=== PATIENT | female | born 1990 | race Caucasian/White ===

== ENCOUNTER 2021-10-06 09:53 | Emergency (ER) | payer OTHER, SELFPAY ==
[2021-10-06 09:58] VITALS: BP 135/72; PULSE 66; RESP 20; TEMP 36.7; O2SAT 99
--- NOTE | 2021-10-06 09:59 | ED.URI ---
HPI - URI/Sore Throat General Chief Complaint: Upper Respiratory Infection Stated Complaint: cough Time Seen by Provider: 10/06/21 09:59 Source: patient and RN notes reviewed History of Present Illness HPI Narrative: Patient is a 31-year-old female who presents the urgent care with complaints of increased allergies and cough for the last week and a half. Patient states that she has had thick mucus and been unable to cough it up. Patient also reports of some wheezing at night. Patient does have a history of asthma and has been out of her inhaler. Currently denies of any shortness of breath. Denies of any ill exposures. No other complaints. No acute distress noted. Patient aware of the plan of care. Some parts of this dictation were generated by voice recognition software and may contain typographical and/or grammatical inaccuracies. Related Data Allergies Allergy/AdvReac Type Severity Reaction Status Date / Time codeine Allergy Intermediate Hives / Verified 10/06/21 09:56 Red Face Penicillins Allergy Unknown Rash Verified 10/06/21 09:56 iodine AdvReac Unknown Nausea and Verified 10/06/21 09:56 Vomiting Review of Systems Review of Systems: CONSTITUTIONAL: Denies fever, chills, or sweats. EYES: Denies visual changes, redness, or discharge. ENT: Reports of rhinorrhea, mild sore throat, postnasal drainage and congestion CARDIOVASCULAR: Denies chest pain, palpitations, or edema. RESPIRATORY: Reports of intermittent cough with wheezing at night GASTROINTESTINAL: Denies abdominal pain, nausea, vomiting, or diarrhea. GENITOURINARY: Denies dysuria or hematuria. SKIN: Denies rash or itching. MUSCULOSKELETAL: Denies back pain, joint pain, or myalgia. NEUROLOGIC: Denies headache, numbness, or weakness. All other systems reviewed are negative, except as documented in HPI. PMFSH Social History Social History Gender identity (if verbalized by the patient): Female Comments At the time of my signature, I reviewed and agree with the nursing past medical, surgical, social, and family history. There is no relevant family history pertinent to the patient complaint. Exam Narrative: GENERAL: This is a well-nourished, well-developed patient, in no apparent distress. HEAD: normocephalic, atraumatic. EYES: PERRL. Sclera clear/white. Vision is grossly intact. EARS: External ears normal, auditory canals clear and without drainage, TMs normal without perforation. Hearing grossly intact. NOSE: External nose normal with no obvious nasal discharge. Bilateral erythemic nares with clear rhinorrhea THROAT: Mucous membranes moist, posterior pharynx clear. Moderate postnasal drainage NECK: Neck supple CARDIOVASCULAR: Regular rate and rhythm without murmurs, gallops, or rubs. RESPIRATORY: Clear to auscultation. Breath sounds equal bilaterally. No wheezes, rales, or rhonchi. SKIN: warm, intact with no suspicious lesions or rash, good texture and turgor. NEURO: awake, alert, and oriented to person, place and time. There were no obvious focal neurologic abnormalities. EXTREMITIES: No clubbing, cyanosis, or edema. Course Course Level of Care: Express Care Visit Vital Signs Vital signs: Vital Signs Temperature 98.1 F 10/06/21 09:58 Pulse Rate 66 10/06/21 09:58 Respiratory Rate 20 10/06/21 09:58 Blood Pressure 135/72 10/06/21 09:58 Pulse Oximetry 99 10/06/21 09:58 Temperature 98.1 F 10/06/21 09:58 Pulse Rate 66 10/06/21 09:58 Respiratory Rate 20 10/06/21 09:58 Blood Pressure 135/72 10/06/21 09:58 Pulse Oximetry 99 10/06/21 09:58 Reviewed MDM - URI/Sore Throat MDM Narrative Medical decision making narrative: Advised the patient to complete steroid regimen as prescribed. Be sure to eat and drink with the medication. Use your inhaler as needed for wheezing or shortness of breath. Continue your daily allergy medication and use Benadryl prior to bedti
== END 2021-10-06 10:19 | disposition home or self-care (01) ==
PROVIDERS: Emergency Provider Nurse Practitioner Family; PCP Internal Medicine
DX: T78.49XA Other allergy, initial encounter (principal); J45.909 Unspecified asthma, uncomplicated
CPT/HCPCS: 99213; G0463

== ENCOUNTER 2022-03-23 16:38 | Emergency (ER) | payer OTHER, SELFPAY ==
[2022-03-23 16:38] VITALS: BP 144/86; PULSE 76; RESP 20; TEMP 36.9; O2SAT 100
--- NOTE | 2022-03-23 16:46 | ED.FEMALEGU ---
HPI - Female Genitourinary General Chief complaint: Urogenital-Female Stated complaint: Urinary Problem Time Seen by Provider: 03/23/22 16:46 Source: patient and RN notes reviewed History of Present Illness HPI Narrative: Patient is a 31-year-old female presents the urgent care with complaints of a possible UTI due to low back pain and urinary frequency. Patient states she has had a history of them but has not had one for at least 1 year. Patient has not taken anything [id number] for her symptoms. States that they started 3 to 4 days ago. Denies of any fever, nausea, vomiting or abdominal pain. No other acute complaints. No acute distress noted. Patient aware of the plan of care. Some parts of this dictation were generated by voice recognition software and may contain typographical and/or grammatical inaccuracies. Related Data Home Medications Medication Instructions Recorded Confirmed carbamazepine 200 mg tablet mg 03/23/22 clonidine HCl 0.1 mg tablet mg 03/23/22 fluoxetine 20 mg capsule mg 03/23/22 gabapentin 300 mg capsule mg 03/23/22 valacyclovir 500 mg tablet mg 03/23/22 Allergies Allergy/AdvReac Type Severity Reaction Status Date / Time codeine Allergy Intermediate Hives / Verified 03/23/22 16:40 Red Face Penicillins Allergy Unknown Rash Verified 03/23/22 16:40 iodine AdvReac Unknown Nausea and Verified 03/23/22 16:40 Vomiting Review of Systems Review of Systems: CONSTITUTIONAL: Denies fever, chills, or sweats. EYES: Denies visual changes, redness, or discharge. ENT: Denies rhinorrhea, congestion, sore throat, or otalgia. CARDIOVASCULAR: Denies chest pain, palpitations, or edema. RESPIRATORY: Denies cough or dyspnea. GASTROINTESTINAL: Denies abdominal pain, nausea, vomiting, or diarrhea. GENITOURINARY: Reports of urinary frequency and low back pain SKIN: Denies rash or itching. MUSCULOSKELETAL: Denies back pain, joint pain, or myalgia. NEUROLOGIC: Denies headache, numbness, or weakness. All other systems reviewed are negative, except as documented in HPI. [facility] Social History Social History Gender identity (if verbalized by the patient): Female Comments At the time of my signature, I reviewed and agree with the nursing past medical, surgical, social, and family history. There is no relevant family history pertinent to the patient complaint. Exam Narrative: GENERAL: This is a well-nourished, well-developed patient, in no apparent distress. HEAD: normocephalic, atraumatic. EYES: PERRL. Sclera clear/white. Vision is grossly intact. EARS: External ears normal NOSE: External nose normal with no obvious nasal discharge, nares without redness, no rhinorrhea. THROAT: Mucous membranes moist NECK: Neck supple CARDIOVASCULAR: Regular rate and rhythm without murmurs, gallops, or rubs. RESPIRATORY: Clear to auscultation. Breath sounds equal bilaterally. No wheezes, rales, or rhonchi. GASTROINTESTINAL: Abdomen soft, non-tender, nondistended. Bowel sounds are active. SKIN: warm, intact with no suspicious lesions or rash, good texture and turgor. NEURO: awake, alert, and oriented to person, place and time. There were no obvious focal neurologic abnormalities. EXTREMITIES: No clubbing, cyanosis, or edema. BACK: Mild diffuse lumbar tenderness. No flank tenderness. Course Course Level of Care: Express Care Visit Vital Signs Vital signs: Vital Signs Temperature 98.5 F 03/23/22 16:38 Pulse Rate 76 03/23/22 16:38 Respiratory Rate 20 03/23/22 16:38 Blood Pressure 144/86 H 03/23/22 16:38 Pulse Oximetry 100 03/23/22 16:38 Oxygen Delivery Room Air 03/23/22 16:38 Temperature 98.5 F 03/23/22 16:54 Pulse Rate 76 03/23/22 16:54 Respiratory Rate 20 03/23/22 16:54 Blood Pressure 144/86 H 03/23/22 16:54 Pulse Oximetry 100 03/23/22 16:54 Oxygen Delivery Room Air 03/23/22 16:54 Reviewed-patient is inform
[2022-03-23 16:54] VITALS: BP 144/86; PULSE 76; RESP 20; TEMP 36.9; O2SAT 100
== END 2022-03-23 17:20 | disposition home or self-care (01) ==
PROVIDERS: Emergency Provider Nurse Practitioner Family; PCP Internal Medicine
DX: M54.50 Low back pain, unspecified (principal)
CPT/HCPCS: 81003; 99212; G0463

== ENCOUNTER 2022-04-03 15:58 | Emergency (ER) | payer OTHER, SELFPAY ==
[2022-04-03 16:04] VITALS: BP 144/87; PULSE 97; RESP 20; TEMP 36.7; O2SAT 100
--- NOTE | 2022-04-03 16:08 | ED.URI ---
HPI - URI/Sore Throat General Chief Complaint: Headache Stated Complaint: upper respiratory/ passed out at work Time Seen by Provider: 04/03/22 16:09 Source: patient and RN notes reviewed Mode of arrival: ambulatory Limitations: no limitations History of Present Illness HPI Narrative: 31-year-old female presents to the [facility] with complaints of passing out at work today about 8:00 a.m.. Reports that she had a loss of consciousness as well as hitting her head. Reports that she had an EMS ride to [facility] and states that was evaluated. patient reports that she had an EKG and blood work which she reports is negative. denies having any type of imaging. Patient comes to the [facility] and is complaining of 1 of the worst headaches she has ever had. Patient is also complaining of sinus congestion. Daughter tested positive for RSV last week. Denies fevers. MD elicited complaint: rhinorrhea and nasal congestion Consistency: constant Related Data Home Medications Medication Instructions Recorded Confirmed carbamazepine 200 mg tablet mg 03/23/22 clonidine HCl 0.1 mg tablet mg 03/23/22 fluoxetine 20 mg capsule mg 03/23/22 gabapentin 300 mg capsule mg 03/23/22 valacyclovir 500 mg tablet 500 mg PO BID 03/23/22 03/23/22 Allergies Allergy/AdvReac Type Severity Reaction Status Date / Time codeine Allergy Intermediate Hives / Verified 04/03/22 16:06 Red Face Penicillins Allergy Unknown Rash Verified 04/03/22 16:06 iodine AdvReac Unknown Nausea and Verified 04/03/22 16:06 Vomiting Review of Systems Review of Systems: All systems reviewed & are unremarkable except as noted in HPI and below Constitutional: Constitutional: Reports no additional constitutional complaints, Denies chills and Denies fever(s) Eyes: Eyes: Reports no additional eye complaints ENT: Reports system reviewed and no additional complaints, except as documented Cardiovascular: Cardiovascular: Reports no additional cardiovascular complaints Respiratory: Respiratory: Reports no additional respiratory complaints Gastrointestinal: Gastrointestinal: Reports no additional gastrointestinal complaints Musculoskeletal: Musculoskeletal: Reports no additional musculoskeletal complaints Integumentary/Breasts: Skin/Breast: Reports system reviewed and no additional complaints, except as docu Neurologic: Reports as per HPI, Reports syncope and Reports headache(s) Psychiatric: Psychiatric: Reports no additional psychiatric complaints Allergic/Immunologic: Allergic/Immunologic: Reports no additional allergic/immunologic complaints [facility] Past Medical History Medical History (Updated 04/03/22 @ 16:34 by Feli Parikh APRN) Anxiety and depression Social History Social History Gender identity (if verbalized by the patient): Female Comments At the time of my signature, I reviewed and agree with the nursing past medical, surgical, social, and family history. There is no relevant family history pertinent to the patient complaint. Exam Const: General: healthy appearing, no acute distress, alert and well nourished Nutritional Appearance: well nourished and obese Orientation/consciousness: patient oriented x3 Limitations: no limitations HENMT: Head: normal to inspection Ears: external ears normal, TM's normal bilaterally and EAC's normal Face/Nose/Sinus: Normal external nose present and Normal nares present Face and sinus: normal facial exam Throat: posterior oropharynx normal and uvula midline Eyes: General: appearance normal, both eyes and all related structures Conjunctivae: conjunctivae normal Pupils: Equal, round and reactive pupils present EOM: EOMs intact bilaterally Direct Ophthalmoscopy: no photophobia Neck: Neck: normal visual inspection, no lymphadenopathy and no meningeal signs Chest: Chest palpation & inspection: normal inspection of the chest Resp: Effort & In
[2022-04-03 16:13] VITALS: BP 144/87; PULSE 97; RESP 20; TEMP 36.7; O2SAT 100
== END 2022-04-03 16:15 | disposition short-term general hospital (02) ==
PROVIDERS: Emergency Provider Nurse Practitioner; PCP Internal Medicine
DX: R55 Syncope and collapse (principal); R51.9 Headache, unspecified; F41.9 Anxiety disorder, unspecified; F32.A Depression, unspecified
CPT/HCPCS: 99211; 99213; G0463

== ENCOUNTER 2022-05-18 11:23 | Emergency (ER) | payer OTHER, SELFPAY ==
[2022-05-18 11:28] VITALS: BP 125/91; PULSE 155; RESP 20; TEMP 37; O2SAT 100
--- NOTE | 2022-05-18 12:56 | ED.URI ---
HPI - URI/Sore Throat General Chief Complaint: Upper Respiratory Infection Stated Complaint: cold w/ear Time Seen by Provider: 05/18/22 12:56 Source: patient, RN notes reviewed and old records reviewed Mode of arrival: ambulatory Limitations: no limitations History of Present Illness HPI Narrative: 31 year female presents to [facility] with complaints of right ear pain, she has a continued cough and congestion for the past week. Patient was diagnosed with COVID 1 week ago has quarantined and has returned to work. Patient reports that cough has been bothersome with patient reporting using her inhaler prn. She states that she has also use OTC Tylenol, cough and cold medication without improvement in her symptoms. MD elicited complaint: cough (with congestion and right ear pain) Pertinent past history: other (recent COVID) Onset (ago): week(s) (1) Treatments prior to arrival: acetaminophen, cold medicine and other (inhaler) Related Data Home Medications Medication Instructions Recorded Confirmed carbamazepine 200 mg tablet 200 mg PO BID 03/23/22 04/03/22 clonidine HCl 0.1 mg tablet 0.1 mg PO BID 03/23/22 04/03/22 fluoxetine 20 mg capsule 20 mg PO BID 03/23/22 04/03/22 gabapentin 300 mg capsule 300 mg PO BID 03/23/22 04/03/22 valacyclovir 500 mg tablet See Rx Instructions .Route .COMPLEX 03/23/22 04/03/22 baclofen 20 mg tablet mg 05/18/22 desogestrel-e.estradiol 0.15 tablet 05/18/22 mg-0.02 mg(21)/e.estrad 0.01 mg(5) tablet ([place] (28)) Allergies Allergy/AdvReac Type Severity Reaction Status Date / Time codeine Allergy Intermediate Hives / Verified 04/03/22 16:06 Red Face Penicillins Allergy Unknown Rash Verified 04/03/22 16:06 iodine AdvReac Unknown Nausea and Verified 04/03/22 16:06 Vomiting Review of Systems Review of Systems: CONSTITUTIONAL: Denies malaise, chills, sweats, or fever. EYES: Denies visual changes, redness, or discharge. ENT: Reports rhinorrhea, congestion, sinus pain, otalgia and sore throat. CARDIOVASCULAR: Denies chest pain, palpitations, or edema. RESPIRATORY: Reports cough.? Denies dyspnea. GASTROINTESTINAL: Denies abdominal pain, nausea, vomiting, diarrhea SKIN: Denies rash or itching. MUSCULOSKELETAL: Denies myalgia. NEUROLOGIC: Denies headache. All systems reviewed & are unremarkable except as noted in HPI and below PMFSH Past Medical History Medical History (Updated 05/28/22 @ 11:08 by Darlin Pérez NP) Anxiety and depression Asthma Surgical History Surgical History (Updated 05/28/22 @ 11:07 by Darlin Pérez NP) H/O left knee surgery Hx of cholecystectomy Previous section total X2 Social History Social History Gender identity (if verbalized by the patient): Female Comments At time of signature, agree with nursing past medical, surgical, social and family history. There is no relevant family history pertinent to the presenting complaint Exam Narrative: GENERAL: Well-appearing, well-nourished, and in no acute distress. HEAD: Normocephalic EYES: PERRLA, conjunctivae clear ENT: Nares clear, turbinates edematous and erythematous, clear discharge. Mucous membranes moist. Right TM red and bulging, Left TM pearly donohue with dull light reflex; no tragal tenderness. Oropharynx erythematous without lesions. Tonsils not enlarged and without exudate, no drooling, no hoarseness, no trismus, uvula midline. NECK: Supple. No lymphadenopathy CHEST: Clear to auscultation, breath sounds equal. No wheezing, rhonchi, rales, or stridor. No respiratory distress, speaks in full sentences.frequent harsh cough SAO2 100% on room air HEART: Regular rate and rhythm. No murmur heard. SKIN: Warm, dry, no rash. NEURO: Alert and oriented x3. PSYCH: Normal mood and affect Course Course Emergency Course: Patient is aware of diagnosis, understands and agrees to treatment plan.? Ant
== END 2022-05-18 13:13 | disposition home or self-care (01) ==
PROVIDERS: Emergency Provider Registered Nurse; PCP Internal Medicine
DX: H66.91 Otitis media, unspecified, right ear (principal); R05.1 Acute cough; F41.9 Anxiety disorder, unspecified; F32.A Depression, unspecified
CPT/HCPCS: 99213; G0463

== ENCOUNTER 2023-02-19 10:50 | Emergency (ER) | payer OTHER, SELFPAY ==
[2023-02-19 10:55] VITALS: BP 111/86; PULSE 87; RESP 16; TEMP 36.4; O2SAT 100
--- NOTE | 2023-02-19 11:09 | ED.SKABFB ---
HPI - Skin/Abscess/Foreign Bdy General Chief complaint: Skin/Abscess/Foreign Body Stated complaint: Skin Sore on Back Time Seen by Provider: 02/19/23 11:09 Source: patient, RN notes reviewed and old records reviewed Mode of arrival: ambulatory Limitations: no limitations History of Present Illness HPI narrative: 32-year-old female presents to the [facility] with concerns of a cyst that has been on her back for 7 years. Patient reports, the care and more painful over the last several days. No erythema, no increased warmth, no fluctuance noted. No abscess area Related Data Home Medications Medication Instructions Recorded Confirmed carbamazepine 200 mg tablet 200 mg PO BID 03/23/22 02/19/23 clonidine HCl 0.1 mg tablet 0.1 mg PO BID 03/23/22 02/19/23 fluoxetine 20 mg capsule 20 mg PO BID 03/23/22 02/19/23 gabapentin 300 mg capsule 300 mg PO BID 03/23/22 02/19/23 baclofen 20 mg tablet 20 mg PO BID 05/18/22 02/19/23 Allergies Allergy/AdvReac Type Severity Reaction Status Date / Time codeine Allergy Intermediate Hives / Verified 02/19/23 11:06 Red Face Penicillins Allergy Unknown Rash Verified 02/19/23 11:06 iodine AdvReac Unknown Nausea and Verified 02/19/23 11:06 Vomiting Review of Systems Review of Systems: All systems reviewed & are unremarkable except as noted in HPI and below Constitutional: Constitutional: Reports no additional constitutional complaints Eyes: Eyes: Reports no additional eye complaints ENT: Reports system reviewed and no additional complaints, except as documented Cardiovascular: Cardiovascular: Reports no additional cardiovascular complaints, Denies chest pain and Denies dyspnea Respiratory: Respiratory: Reports no additional respiratory complaints, Denies chest congestion, Denies cough and Denies dyspnea Gastrointestinal: Gastrointestinal: Reports no additional gastrointestinal complaints, Denies abdominal pain, Denies nausea and Denies vomiting Musculoskeletal: Musculoskeletal: Reports no additional musculoskeletal complaints Integumentary/Breasts: Skin/Breast: Reports as per HPI Neurologic: Reports system reviewed and no additional complaints, except as documented Psychiatric: Psychiatric: Reports no additional psychiatric complaints Allergic/Immunologic: Allergic/Immunologic: Reports no additional allergic/immunologic complaints PMFSH Past Medical History Medical History Anxiety and depression Asthma Surgical History Surgical History H/O left knee surgery Hx of cholecystectomy Previous section total X2 Social History Social History Gender identity (if verbalized by the patient): Female Comments At the time of my signature, I reviewed and agree with the nursing past medical, surgical, social, and family history. There is no relevant family history pertinent to the patient complaint. Exam Const: General: cooperative, healthy appearing, comfortable, no acute distress, well developed, alert and well nourished Nutritional Appearance: well nourished and obese Orientation/consciousness: patient oriented x3 Limitations: no limitations HENMT: Head: normal to inspection Ears: hearing grossly normal bilaterally and external ears normal Face/Nose/Sinus: Normal external nose present, Normal nares present, Normal nasal mucous membranes and turbinates present, normal facial exam and face symmetric Face and sinus: normal facial exam and face symmetric Eyes: General: appearance normal, both eyes and all related structures Alignment and Position: alignment normal Periorbital: periorbital findings normal Pupils: Equal, round and reactive pupils present EOM: EOMs intact bilaterally Neck: Neck: normal visual inspection, full ROM, no lymphadenopathy and no meningeal signs Chest: Chest palpation & inspect
== END 2023-02-19 11:40 | disposition home or self-care (01) ==
PROVIDERS: Emergency Provider Nurse Practitioner; PCP Internal Medicine
DX: D23.5 Other benign neoplasm of skin of trunk (principal); F41.9 Anxiety disorder, unspecified; F32.A Depression, unspecified; J45.909 Unspecified asthma, uncomplicated
CPT/HCPCS: 99211; G0463

== ENCOUNTER 2023-12-01 11:49 | Emergency (ER) | payer OTHER, SELFPAY ==
--- NOTE | 2023-12-01 11:54 | ED.NAVMDI ---
HPI - Nausea/Vomiting/Diarrhea General Chief complaint: Nausea/Vomiting/Diarrhea Stated complaint: lightheaded/diarrhea/nausea Time Seen by Provider: 12/01/23 11:54 Source: patient and RN notes reviewed Mode of arrival: ambulatory Limitations: no limitations History of Present Illness HPI Narrative: 33-year-old female presented for complaint of nausea vomiting, diarrhea and occasional stomachache and headache for the last 3 days. Endorses the abdominal pain occurs before vomiting. Admits to noting some blood in stool. LBM today, no blood noted. Patient is able to tolerate fluids. She was able to eat did doughnut today without vomiting. Denies fever. Not taking anything otc for symptoms. Related Data Home Medications Medication Instructions Recorded Confirmed carbamazepine 200 mg tablet 200 mg PO BID 03/23/22 12/01/23 clonidine HCl 0.1 mg tablet 0.1 mg PO BID 03/23/22 12/01/23 fluoxetine 20 mg capsule 20 mg PO BID 03/23/22 12/01/23 gabapentin 300 mg capsule 300 mg PO BID 03/23/22 12/01/23 baclofen 20 mg tablet 20 mg PO BID 05/18/22 12/01/23 atomoxetine 40 mg capsule 40 mg PO DAILY 12/01/23 12/01/23 (Strattera) cholecalciferol (vitamin D3) 50 50 mcg PO DAILY 12/01/23 12/01/23 mcg (2,000 unit) capsule hydroxyzine HCl 25 mg tablet 25 mg PO BID PRN Anxiety 12/01/23 12/01/23 ibuprofen 600 mg tablet 600 mg PO TIDWMEAL 12/01/23 12/01/23 ketoconazole 2 % shampoo 1 applic topical DAILY 12/01/23 12/01/23 Allergies Allergy/AdvReac Type Severity Reaction Status Date / Time codeine Allergy Intermediate Hives / Verified 12/01/23 11:57 Red Face Penicillins Allergy Unknown Rash Verified 12/01/23 11:57 iodine AdvReac Unknown Nausea and Verified 12/01/23 11:57 Vomiting Review of Systems Review of Systems: CONSTITUTIONAL: Denies body aches, fever, chills ENT: Denies rhinorrhea, congestion CARDIOVASCULAR: Denies chest pain, palpitations, or edema. RESPIRATORY: Denies cough or dyspnea. GASTROINTESTINAL: Endorses abdominal pain, nausea, vomiting, diarrhea, hematochezia, denies hematemesis GENITOURINARY: Denies dysuria, hematuria, or CVA tenderness. SKIN: Denies rash, itching, or wounds. MUSCULOSKELETAL: Denies back pain, joint pain, or myalgia. NEUROLOGIC: reports headache All systems reviewed & are unremarkable except as noted in HPI and below PMFSH Past Medical History Medical History Anxiety and depression Asthma Surgical History Surgical History H/O left knee surgery Hx of cholecystectomy Previous section total X2 Social History Social History Gender identity (if verbalized by the patient): Female Comments At time of signature, I have reviewed and agree with nursing past medical, surgical, social and family history unless otherwise noted. Please see nursing chart for further information. There is no relevant family history pertinent to the presenting complaint Exam Narrative: GENERAL: Well-appearing, and in no acute distress. EYES: EOMI. Conjunctivae normal. ENT: Mucous membranes pink and moist. CHEST: No respiratory distress. Clear to auscultation. HEART: Regular rate and rhythm. No murmur appreciated. Normal peripheral pulses. ABDOMEN: abd soft, nondistended, normal active bowel sounds. exam limited due to body habitus. mildly tender abdomen to epigastric/LUQ; No guarding, rebound tenderness, asymmetry.Negative Long?s sign. No periumbilical tenderness. No Supra public tenderness or distension. EXTREMITIES: Normal range of motion. No edema. SKIN: Warm, dry, no rash. Capillary refill normal. Normal skin turgor. NEURO: No focal deficits. Alert and oriented x3. PSYCH: Normal affect. Course Course Emergency Course: Patient is aware of diagnosis, understands and agrees to treatment plan. Anticipatory
[2023-12-01 12:01] VITALS: BP 180/109; PULSE 71; RESP 16; TEMP 36.5; O2SAT 100
== END 2023-12-01 12:12 | disposition home or self-care (01) ==
PROVIDERS: Emergency Provider Nurse Practitioner Family; PCP Internal Medicine
DX: R11.2 Nausea with vomiting, unspecified (principal); R19.7 Diarrhea, unspecified; J45.909 Unspecified asthma, uncomplicated; F41.9 Anxiety disorder, unspecified; F32.A Depression, unspecified
CPT/HCPCS: 99213; G0463

== ENCOUNTER 2023-12-04 12:22 | Emergency (ER) | payer OTHER, SELFPAY ==
--- NOTE | 2023-12-04 12:36 | ED.GENADULT ---
HPI - General Adult General Chief complaint: Nausea/Vomiting/Diarrhea Stated complaint: Diarrhea,Dizziness Source: patient, RN notes reviewed and old records reviewed Mode of arrival: ambulatory Limitations: no limitations History of Present Illness HPI narrative: 33 year old female who presents to express care with complaints of nausea vomiting and diarrhea for the past 6 days and some dizziness. Patient reports that she was seen here on the 30 of November for same complaints. 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 Patient reports that she has been drinking fluids and she has been eating ice cream has had diarrhea X2 today no emesis, continues with some nausea, no fevers. Patient reports that she does have headache but has history of migraines. Patient reports that she has taken Tylenol and also Imodium, denies any abdominal pain. MD complaint: nausea, diarrhea and headache, feels some dizziness Onset (ago): day(s) (6) Treatments prior to arrival: other (Tylenol and Imodium) Related Data Home Medications Medication Instructions Recorded Confirmed baclofen 20 mg tablet 20 mg PO BID 05/18/22 12/04/23 atomoxetine 40 mg capsule 40 mg PO DAILY 12/01/23 12/04/23 (Strattera) cholecalciferol (vitamin D3) 50 50 mcg PO DAILY 12/01/23 12/04/23 mcg (2,000 unit) capsule ibuprofen 600 mg tablet 600 mg PO TIDWMEAL 12/01/23 12/04/23 ketoconazole 2 % shampoo 1 applic topical DAILY 12/01/23 12/04/23 fluoxetine 40 mg capsule 40 mg PO BID 12/04/23 12/04/23 tramadol 50 mg tablet 50 mg PO DAILY PRN Pain (Scale 12/04/23 12/04/23 Score 4-6) Allergies Allergy/AdvReac Type Severity Reaction Status Date / Time codeine Allergy Intermediate Hives / Verified 12/04/23 12:43 Red Face Penicillins Allergy Unknown Rash Verified 12/04/23 12:43 iodine AdvReac Unknown Nausea and Verified 12/04/23 12:43 Vomiting Review of Systems Review of Systems: CONSTITUTIONAL: Denies fever, chills, or sweats. ENT: Denies rhinorrhea, congestion, sore throat, or otalgia. CARDIOVASCULAR: Denies chest pain, palpitations, or edema. RESPIRATORY: Denies cough or dyspnea. GASTROINTESTINAL: Reports no abdominal pain,positive nausea, no recent vomiting, diarrhea continues. GENITOURINARY: Denies dysuria or hematuria. SKIN: Denies rash or itching. MUSCULOSKELETAL: Denies back pain, joint pain, or myalgia. NEUROLOGIC: Reports headache, no numbness, or weakness, reports some dizziness All systems reviewed & are unremarkable except as noted in HPI and below PMFSH Past Medical History Medical History (Updated 12/06/23 @ 07:36 by Darlin Pérez NP) Anxiety and depression Asthma Chronic migraine Fibromyalgia TBI (traumatic brain injury) Surgical History Surgical History H/O left knee surgery Hx of cholecystectomy Previous section total X2 Social History Social History (Updated 12/06/23 @ 07:27 by Darlin Pérez NP) Smoking status: Former smoker Alcohol intake: unknown Substance use: unknown Living arrangements: with family Gender identity (if verbalized by the patient): Female Comments At time of signature, agree with nursing past medical, surgical, social and family history. There is no relevant family history pertinent to the presenting complaint Exam Narrative: GENERAL: Well-appearing, well-nourished, obese and in no acute distress. HEAD: Normocephalic, atraumatic. EYES: PERRLA, conjunctivae clear, and EOMI. ENT: Nares clear. Mucous membranes moist. Oropharynx without edema, erythema, or lesions. Tonsils not enlarged and without exudate. NECK: Supple. No lymphadenopathy CHEST: Speaks in full sentences. No respiratory distress.SAO2 HEART: Regular rate and rhythm. ABDOMEN: Soft, flat, nondistended. No guarding, rebound tenderness, or rigid. No pulsatilla masses. Bowel sounds present in all four quadrants, hy
[2023-12-04 12:49] VITALS: BP 146/94; PULSE 70; RESP 20; TEMP 36.9; O2SAT 99
== END 2023-12-04 13:08 | disposition home or self-care (01) ==
PROVIDERS: Emergency Provider Registered Nurse; PCP Internal Medicine
DX: R11.0 Nausea (principal); R19.7 Diarrhea, unspecified; Z87.891 Personal history of nicotine dependence; J45.909 Unspecified asthma, uncomplicated; M79.7 Fibromyalgia; F41.9 Anxiety disorder, unspecified; F32.A Depression, unspecified
CPT/HCPCS: 99211; G0463